=== PATIENT | male | born 1990 | race Caucasian/White ===

== ENCOUNTER 2024-04-28 07:21 | Day surgery (SDC) | payer OTHER ==
[2024-04-26 10:33] VITALS: BMI 17.9
[2024-04-28] MEDS ORDERED: LIDOCAINE 1% (10MG/ML) FOR IV START INTRADERMA PRN (07:57)
[2024-04-28] MEDS ORDERED: ONDANSETRON 4 MG/2 ML VIAL IVP PRN (07:57)
[2024-04-28] MEDS: IV FLUID CONTINUATION 1,000 ML IV ONE (08:15)
[2024-04-28] MEDS: LACTATED RINGERS 1,000 ML IV SCH (08:15)
[2024-04-28 08:16] VITALS: TEMP 97.5
[2024-04-28] MEDS ORDERED: PROPOFOL 10 MG/ML 20 ML VIAL IV ONE (08:19)
[2024-04-28] MEDS ORDERED: LIDOCAINE 1% INJ 10MG/ML (20 ML MDV) ONE (08:19)
--- NOTE | 2024-04-28 08:22 | P.GSHP ---
History of Present Illness H&P Date: 04/28/24 Chief Complaint: GI bleed is a 33-year-old male who's had complaints of rectal bleeding. Patient states he has a large hemorrhoids. Past Medical History Additional Past Medical History / Comment(s): HIV +, IBS TYPE SYMPTOMS History of Any Multi-Drug Resistant Organisms: None Reported Past Surgical History: Tonsillectomy Past Anesthesia/Blood Transfusion Reactions: No Reported Reaction Smoking Status: Former smoker, Vaper - Past Family History Mother Family Medical History: No Reported History Medications and Allergies Home Medications Medication Instructions Recorded Confirmed Type Bictegrav/Emtricit/Tenofov Ala 1 each PO DAILY 04/26/24 04/28/24 History [Biktarvy 50-200-25 mg Tablet] Allergies Allergy/AdvReac Type Severity Reaction Status Date / Time azithromycin [From Zithromax] Allergy Rash/Hives Verified 04/28/24 08:04 Surgical - Exam Vital Signs Temp Pulse Resp BP Pulse Ox 97.5 F L 67 12 115/62 100 04/28/24 08:09 04/28/24 08:09 04/28/24 08:09 04/28/24 08:09 04/28/24 08:09 - General well developed, well nourished, no distress - Eyes PERRL - ENT normal pinna - Neck no masses - Respiratory normal expansion - Cardiovascular Rhythm: regular - Abdomen Abdomen: soft, non tender - Rectum Rectum: normal sphincter tone - Integumentary no rash - Neurologic normal coordination Assessment and Plan Assessment: rectal bleeding. We'll perform screening colonoscopy.
--- NOTE | 2024-04-28 08:39 | P.OP ---
Date of Procedure: 04/28/24 Preoperative Diagnosis: rectal bleeding Postoperative Diagnosis: internal and external hemorrhoids Possible rectal inflammation pathology pending Procedure(s) Performed: colonoscopy Anesthesia: MAC Surgeon: Brandon Osborne Pathology: other (rectum) Condition: stable Disposition: PACU Description of Procedure: the patient's placed on the endoscopy table in the lateral position. He received IV sedation. Digital rectal exam was performed. The patient is a enlarged external hemorrhoid in the right anterior position. The flexible colonoscope was then placed patient anus and passed throughout the entire colon. The ileocecal valve was visualized. The cecum, ascending, transverse colon appeared normal. The descending and sigmoid colon appeared normal. Scope was then brought back the rectum and there was some mild inflammation of the rectal mucosa. This was biopsied with a cold forcep. Scope was withdrawn from patient. There is no evidence of any active GI bleed. Presumed patient may have had bleeding from hemorrhoids.
[2024-04-28 08:44] VITALS: RESP 16
[2024-04-28 08:56] VITALS: BP 118/70; PULSE 79
== END 2024-04-28 09:34 | disposition home or self-care (01) ==
LOC: ORWHC2ENDO 07:21
PROVIDERS: ATTEND Surgery
DX: K64.4 Residual hemorrhoidal skin tags (principal); K64.8 Other hemorrhoids; F31.9 Bipolar disorder, unspecified; Z87.891 Personal history of nicotine dependence; Z88.1 Allergy status to other antibiotic agents; Z79.899 Other long term (current) drug therapy
CPT/HCPCS: 88305; 45380; J2001; J2704